=== PATIENT | male | born 1965 | race Caucasian/White ===

== ENCOUNTER 2021-04-08 08:43 | Day surgery (SDC) | payer BC ==
[~2021-04-08 08:43] MED LIST: Lactated Ringers 1,000 ML IV SCH; Midazolam 1 MG/ML 2 ML SDV ONE; Propofol 200 MG/20 ML SDV ONE; Sodium Chloride 0.9% 10 ML Syringe FLUSH PRN
--- NOTE | 2021-04-08 09:56 | PCM.HPR ---
H & P Addendum review - H & P Addendum Review Date of Original H & P: 04/08/21 Date Reviewed: 03/24/21 Time Reviewed: 09:55 Patient was Examined: No Changes
[2021-04-08] MEDS ORDERED: Propofol 200 MG/20 ML SDV ONE (10:01)
[2021-04-08] MEDS ORDERED: Midazolam 1 MG/ML 2 ML SDV ONE (10:01)
--- NOTE | 2021-04-08 10:23 | PCM.OPNOTE ---
- General Post-Op/Procedure Note Date of Surgery/Procedure: 04/08/21 Operative Procedure(s): Colonoscopy Findings: Normal Pre Op Diagnosis: Hx Polyps Post-Op Diagnosis: Same Anesthesia Technique: JANNA Primary Surgeon: Perry Aleman Anesthesia Provider: Brittni Littlejohn Complications: None Condition: Good
[2021-04-08 15:29] VITALS: BP 151/98; PULSE 84
--- NOTE | 2021-04-09 09:17 | OR ---
Date of Procedure: 04/08/2021 PREOPERATIVE DIAGNOSIS: History of colon polyps. POSTOPERATIVE DIAGNOSIS: Normal colonoscopy. PROCEDURE: Colonoscopy. ANESTHESIA: IV sedation. PROCEDURE IN DETAIL: The patient was brought to the procedure room where he was placed on his left side and IV sedation administered. Digital rectal exam was performed which was normal. Colonoscope was inserted and advanced to the level of the cecum without difficulty. Cecal position was confirmed by identifying the appendiceal lumen and ileocecal valve. Prep was very good and surfaces were well visualized. Upon withdrawing the scope, the ascending, transverse, and descending colon were normal in appearance. Sigmoid colon and rectum were normal. Retroflexion was normal. Air was removed and the scope withdrawn. The patient tolerated the procedure well and returned to recovery in stable condition. Recommend surveillance colonoscopy again in 5 years. KULDIP RENE MD /[id number]
== END 2021-04-08 10:51 | disposition home or self-care (01) ==
LOC: LL.SDS 08:43
PROVIDERS: ATTEND Surgery
DX: Z12.11 Encounter for screening for malignant neoplasm of colon (principal); Z86.010 Personal history of colon polyps; I10 Essential (primary) hypertension; E78.00 Pure hypercholesterolemia, unspecified; R73.9 Hyperglycemia, unspecified; B37.2 Candidiasis of skin and nail; B35.1 Tinea unguium; L30.9 Dermatitis, unspecified; Z79.899 Other long term (current) drug therapy; Z79.82 Long term (current) use of aspirin
CPT/HCPCS: 00812; 82947; J2250; J2704; J7120